=== PATIENT | female | born 1995 | race Caucasian/White ===

== ENCOUNTER 2021-10-17 10:04 | Emergency (ER) | payer BC ==
[~2021-10-17] VITALS: Ht 165.1 cm; Wt 95.0 kg
[2021-10-17 10:27] VITALS: BP 140/101
--- NOTE | 2021-10-17 10:46 | RAD ---
EXAMINATION: Bilateral ankles radiographs. VIEWS: 6. COMPARISON: None. INDICATION:26 years, Female, bilateral ankle pain, evaluate for fracture. Status post injury FINDINGS/ IMPRESSION: Ill-defined lucent line \along the medial aspect of the right lateral malleolus seen on oblique view only, questionable for nondisplaced fracture. Correlate with point of tenderness. Bilateral ankle mortises and talar domes are intact. Soft tissue swelling about the left lateral malleolus. No joint effusion. Electronically signed by: Olga Lidia Najera MD (10/17/2021 10:44 AM) [id number]
--- NOTE | 2021-10-17 11:09 | PHYS DOC ---
Past History Past Surgical History: No Surgical History (JUMANA LEUNG) Alcohol Use: None (JUMANA LEUNG) General Adult EDM: Chief Complaint: ANKLE PROBLEM HPI: HPI: Patient is a 26 year old female who presents with bilateral ankle pain, right greater than left. Patient states that yesterday afternoon, she was walking down the stairs and stumbled. She did not fall to the ground. Patient reports her right ankle "rolled" and is now swollen. She reports some left ankle tenderness, however it is mild and does not bother her much. Patient has been able to ambulate since injury, though it is painful on the right. She states she has been taking Tylenol every 4-6 hours without significant symptom relief. Patient has no other complaints at this time. (JUMANA LEUNG) Review of Systems: Review of Systems: ROS negative or noncontributory except as mentioned in HPI. (JUMANA LEUNG) Allergies: Allergies: Allergies Coded Allergies Type Severity Reaction Last Updated Verified No Known Drug Allergies 10/17/21 No (JUMANA LEUNG) Physical Exam: PE: Constitutional: Well developed, well nourished, no acute distress, non-toxic appearance. HENT: Normocephalic, atraumatic, bilateral external ears normal, nose normal. Eyes: EOMI, conjunctiva normal, no discharge. Neck: Normal range of motion, no stridor. Skin: Warm, dry, no erythema, no rash. Back: No tenderness, no stepoff. Extremities: Left lateral tenderness at base of 5th metatarsal, lateral malleolus left ankle swelling, active and passive ROM intact bilateral ankles, PT/DP . Extremities otherwise no tenderness, no cyanosis, no clubbing, ROM intact, no edema. Neurologic: Alert and oriented x4, normal motor function, normal sensory function, no focal deficits noted. (JUMANA LEUNG) Current Patient Data: Vital Signs: Vital Signs Date Time Temp Pulse Resp B/P (MAP) Pulse Ox O2 Delivery O2 Flow Rate FiO2 10/17/21 10:27 97.8 92 18 140/101 (114) 98 Room Air (JUMANA LEUNG) Radiology/Procedures: Radiology/Procedures: PROCEDURE: ANKLE BILAT 3V EXAMINATION: Bilateral ankles radiographs. VIEWS: 6. COMPARISON: None. INDICATION:26 years, Female, bilateral ankle pain, evaluate for fracture. Status post injury FINDINGS/ IMPRESSION: Ill-defined lucent line \\along the medial aspect of the right lateral malleolus seen on oblique view only, questionable for nondisplaced fracture. Correlate with point of tenderness. Bilateral ankle mortises and talar domes are intact. Soft tissue swelling about the left lateral malleolus. No joint effusion. Electronically signed by: Olga Lidia Najera MD (10/17/2021 10:44 AM) [id number] (JUMANA LEUNG) Heart Score: C/O Chest Pain: No (JUMANA LEUNG) Course & Med Decision Making: Course & Med Decision Making Pertinent Labs and Imaging studies reviewed. (See chart for details) There are no obvious acute fractures noted to either ankle. There is a questionable lucency on the oblique view of the right ankle at the lateral malleolus, however patient does not have any point tenderness and my suspicion for fracture is low. Patient will be provided with orthopedic contact info rmation for follow-up, should her symptoms not improve. She is aware that repeat x-rays would not be unreasonable after period of about 1-2 weeks. All of her questions were answered. Patient understands and is agreeable to discharge plan. (JUMANA LEUNG) Dragon Disclaimer: Dragon Disclaimer: This electronic medical record was generated, in whole or in part, using a voice recognition dictation system. (JUMANA LEUNG) Attending Co-Sign The patient was seen and interviewed as well as examined at the bedside. The chart was reviewed. The case was discussed. Agree with the plan of care. (BEKAH PANG DO) Departure Departure: Impression: Primary Impression: Moderate right ankle sprain Qualified Codes: S93.401A - Sprain of unspecified ligament of right ankle, initial encounter Additional Impression: Mild sprain of left ankle Qualified Codes: S93.402A - Sprain of unspecified ligament of left ankle, in itial encounter Disposition: HOME / SELF CARE / HOMELESS Condition: IMPROVED Referrals: PCP,NO (PCP) FREDDIE MANLEY II, MD Patient Instructions: Ankle Sprain, [id number], RICE - Routine Care for Injuries, [id number] Additional Instructions: EMERGENCY DEPARTMENT GENERAL DISCHARGE INSTRUCTIONS Thank you for coming to [facility] (ED) today and trusting us with you care. We trust that you had a positive experience in our Emergency Department. If you wish to speak to the department management, you may call the director at [phone]. YOUR FOLLOW UP INSTRUCTIONS ARE FOLLOWS: 1. Follow up with your primary care doctor. If you do not have a primary doctor, please ask for a resource list of physicians or clinics that may be able to assist you with follow up care. 2. The emergency provider has interpreted your imaging studies, if any were ordered. The radiology police specialist also reviewed them. If there is a change in the findings, you will be notified in 48 hours when at all possible. 3. If a lab test or culture has been done, your results will be reviewed and you will be notified if you need a change in treatment. 4. Follow instructions verbalized to you and refer to the printouts if needed. ADDITIONAL INSTRUCTIONS AND INFORMATION: 1. Your care today has been supervised by a physician who is specially trained in emergency care. Many problems require more than one evaluation for a complete diagnosis and treatment. We recommend that you schedule your follow up appointment as recommended to ensure complete treatment of you illness or injury. If you are unable to obtain follow up care and continue to have a problem, or if your condition worsens, we recommend that you return to the ED. 2. We are not able to safely determine your condition over the phone nor are we able to give sound medical advice over the phone. For these safety reasons, if you call for medical advice we will ask you to come to the ED for further evaluation. 3. If you have any questions regarding these discharge instructions please call the ED at [phone]. SAFETY INFORMATION: In the interest of safety, wellness, and injury prevention; we encourage you to wear your seat belt, if you smoke; quite smoking, and we encourage family to use a protective helmet for bicycling and other sporting events that present an increased risk for head injury. IF YOUR SYMPTOMS WORSEN OR NEW SYMPTOMS DEVELOP, OR YOU HAVE CONCERNS ABOUT YOUR CONDITION; OR IF YOUR CONDITION WORSENS WHILE YOU ARE WAITING FOR YOUR FOLLOW UP APPOINTMENT; EITHER CONTACT YOUR PRIMARY CARE DOCTOR, THE PHYSICIAN WHOSE NAME AND NUMBER YOU WERE GIVEN, OR RETURN TO THE ED IMMEDIATELY. JUMANA LEUNG October 17, 2021 11:09 BEKAH PANG DO October 18, 2021 06:08
== END 2021-10-17 11:25 | disposition home or self-care (01) ==
LOC: ER 10:04
DX: S93.401A Sprain of unspecified ligament of right ankle, initial encounter (principal); S93.402A Sprain of unspecified ligament of left ankle, initial encounter; W18.49XA Other slipping, tripping and stumbling without falling, initial encounter; Y93.01 Activity, walking, marching and hiking; Y92.89 Other specified places as the place of occurrence of the external cause; Y99.8 Other external cause status
CPT/HCPCS: 29515; 99283; 73610-50